=== PATIENT | male | born 1965 | race Caucasian/White ===

== ENCOUNTER 2021-06-16 09:02 | Day surgery (SDC) | payer OTHER, SELFPAY ==
[~2021-06-16] VITALS: Ht 177.8 cm; Wt 108.9 kg
[2021-06-16] MEDS ORDERED: LIDOCAINE 2% 100 MG/5 ML UJET TP ONE (11:56)
[2021-06-16] MEDS ORDERED: fentaNYL citrate 0.05 MG/ML VIAL ONE (11:56)
[2021-06-16] MEDS ORDERED: fentaNYL citrate 0.05 MG/ML VIAL IVP ONE (14:45)
== END 2021-06-16 14:32 | disposition home or self-care (01) ==
LOC: MDS 09:02 → MMU 09:03 → MDS 14:32
PROVIDERS: ATTEND Internal Medicine Gastroenterology
DX: Z12.11 Encounter for screening for malignant neoplasm of colon (principal); D12.3 Benign neoplasm of transverse colon; D12.4 Benign neoplasm of descending colon; D12.0 Benign neoplasm of cecum; K57.30 Diverticulosis of large intestine without perforation or abscess without bleeding; I10 Essential (primary) hypertension; E11.9 Type 2 diabetes mellitus without complications; M19.90 Unspecified osteoarthritis, unspecified site; Z20.822 Contact with and (suspected) exposure to COVID-19
CPT/HCPCS: 45385; 87426; J3010